=== PATIENT | male | born 1975 | race Caucasian/White ===

== ENCOUNTER 2016-04-29 23:40 | Emergency (ER) | END 2016-04-30 04:09 | disposition home or self-care (01) ==

== ENCOUNTER 2016-09-25 08:10 | Day surgery (SDC) | payer OTHER ==
[2016-09-25] MEDS ORDERED: LACTATED RINGERS 1,000 ML IV ONE (08:51)
[2016-09-25] MEDS ORDERED: DEXAMETHASONE 4 MG/ML VIAL IVP ONE (10:30)
[2016-09-25] MEDS ORDERED: PROPOFOL 200 MG/20 ML VIAL IVP ONE (10:30)
[2016-09-25] MEDS ORDERED: fentaNYL 100 MCG/2 ML VIAL IVP ONE (10:30)
[2016-09-25] MEDS ORDERED: ONDANSETRON 4 MG/2 ML VIAL IVP ONE (10:30)
[2016-09-25] MEDS ORDERED: MIDAZOLAM 2 MG/2 ML VIAL IVP ONE (10:30)
[2016-09-25] MEDS ORDERED: ROCURONIUM 50 MG/5 ML VIAL IVP ONE (10:30)
[2016-09-25] MEDS ORDERED: SUCCINYLCHOLINE 200 MG/10 ML VIAL IVP ONE (10:30)
[2016-09-25] MEDS ORDERED: LIDOCAINE-PF 2% 10 ML AMP SUBQ ONE (10:30)
[2016-09-25] MEDS ORDERED: BUPIVACAINE 0.5%-EPI 1:200000 PF 30 ML VIAL SUBQ ONE ×2 (11:12→11:39)
--- NOTE | 2016-09-25 11:37 | OPERATIVE REPORT ---
Operative Report - General Procedure Date: 09/25/16 Planned Procedure: Anal fistulectomy Pre-Op Diagnosis: Anal fistula with recurrent perirectal abscess Post Op Diagnosis: Anal fistula with recurrent perirectal abscess - Procedure Note Primary Surgeon: John Anesthesia Provider: Yoan Salas Anesthesia Technique: General ET tube, Local (30 mL of 1/2% marcaine with epinephrine) Estimated Blood Loss (in cc): 5 Drain/Tube Type: negative: Taqueria drain, Constavac drain, Hemovac, Fermin Savage flat drain, Fermin Savage round drain, Fermin Savage drain, Lumbar drain, Nephrostomy, Buzz, Pig tail catheter, Self contained, T-tube, Other Complications: None but fluids = 800 Ml crystalloid - Other Other Information/Narrative: OPERATIVE DESCRIPTION/REPORT: After verbal and written informed consent was obtained detailing the risks of infection, bleeding requiring transfusion with its risks, nerve injury, and , and after I met with the patient confirming the surgery, the patient was brought to the operative suite and placed supine on the operating table. Great care was taken to avoid pressure points to prevent pressure necrosis or nerve injury. Monitoring devices were applied along with TEDs and pneumatic compressive stockings (to prevent DVT). The patient received preoperative antibiotics for surgical prophylaxis. Yoan Salas sedated and anethetized the patient for the entire procedure. The patient was then placed in jackknife position taking great care to prevent pressure necrosis or nerve injury. The patients buttocks were taped apart and the patient was prepped and draped in the usual sterile manner. A "time in" then confirmed that the paitient was identified with 3 identifiers (name, birthdate and medical record number), the history and physical was in the chart, the signed consent confirming the procedure was in the chart, the patient was in the correct position, the aforementioned prophylactic measures were in place or given, we had the correct personel and equipment to complete the procedure and that anesthesia, surgery and nursing were given an opportunuty to express any concerns. With the agreement of everyone in the room, we proceeded with the operation. The listula site was clearly located at the 7 o'clock position with the patient in the prone position. With an anal retractor in place the opening at the dentate line was clearly seen and very easily probed with a fistulotomy wire. The wire was gently advanced and wanted to go more to the 9 o'clock position rather than the 7 o'clock position. The wire came out onto the skin without any pressure. The skin overlying the wire was then incised using Bovie electrocautery and the the wire removed. The fistula site was then excised using Bovie electrocautery making sure there was no epithelialized tract. The dimple/opening at the 7 o'clock position was then excised using Bovie electrocautery and try as I might I could not get this to open up at the anal canal without placing undo pressure on the wire. The perianal area was then injected with 30 mL 1/2% marcaine with epinephrine concentrating the injection around the incision(s). A roll of gelfoam and lidocaine jelly was fashioned and inserted into the patients anus. The patient was then placed supine and extubated. At this point a time out was performed that confirmed that all the counts were correct, the procedure that was performed, the blood loss, the IV fluids administered, and the patients condition. Having tolerated the procedure well, the patient was subsequently taken to short stay in good and stable condition.
[2016-09-25] MEDS ORDERED: oxyCOD/ACETAMIN 5 MG/325 MG TABLET PO ONE (12:26)
[2016-09-25 12:56] VITALS: BP 119/81
== END 2016-09-25 08:11 | disposition home or self-care (01) ==
LOC: SDS 08:10
PROVIDERS: ATTEND Surgery
PROC: 0DBQ0ZZ Excision of Anus, Open Approach (ICD-10-PCS; principal; 2016-09-25 09:15)
DX: K61.1 Rectal abscess (principal); G47.30 Sleep apnea, unspecified; F17.210 Nicotine dependence, cigarettes, uncomplicated
CPT/HCPCS: 46270; A9270; J7120